=== PATIENT | male | born 1995 | race Caucasian/White ===

== ENCOUNTER 2019-05-05 16:37 | Emergency (ER) | payer BC ==
[2019-05-05] MEDS ORDERED: ONDANSETRON HCL/PF 4 MG/ 2ML VIAL IVP ONE (16:47)
--- NOTE | 2019-05-05 16:52 | ED Physician Documentation ---
General Adult - HISTORIAN Historian: patient - HPI Stated Complaint: Hypoglycemia Chief Complaint: General Adult Additional Information: Patient presents to ED with low blood sugar. Patient reports a blood sugar of 36 around 1445 today. He was shaky and diaphoretic at the time. He was able to get glucagon and eat. It improved to 47, he decided to come to ER. Upon presentation to ED his blood sugar was 63. Patient reports having some nausea and vomiting therefore not eating like he should today but keeping his normal insulin regimen. He take Levemir 30 units daily with sliding scale novolog with meals. [place] [employer] and several other campers have nausea/vomiting/diarrhea. He denies fever, chills, shortness of breath, chest pain or dizziness. Onset: hours (3) Timing: still present Severity: moderate - ROS CONST: sweating. denies: fever EYES/ENT: denies: problems with vision CVS/RESP: denies: chest pain, shortness of breath GI/: vomiting, nausea. denies: diarrhea MS/SKIN/LYMPH: none NEURO/PSYCH: denies: headache, dizziness - PAST HX Past History: none Other History: diabetes Type 1 Surgeries/Procedures: none Allergies/Adverse Reactions: Allergies Allergy/AdvReac Type Severity Reaction Status Date / Time No Known Allergies Allergy Verified 05/05/19 16:44 Home Medications: Ambulatory Orders Medication Instructions Recorded Insulin Aspart [Novolog Flexpen] 1 unit SQ TID 05/05/19 Insulin Detemir [Levemir Flextouch] 30 unit SQ HS 05/05/19 Ondansetron HCl Rapdis [Zofran Odt] 4 mg PO Q8 PRN #20 tab 05/05/19 - SOCIAL HX Smoking History: non-smoker Alcohol Use: none Drug Use: none - FAMILY HX Family History: Yes - VITAL SIGNS Vital Signs: Vital Signs Temp Pulse Resp BP Pulse Ox 95 H 13 134/77 91 L 05/05/19 16:37 05/05/19 16:37 05/05/19 16:37 05/05/19 16:37 - REVIEWED ASSESSMENTS Nursing Assessment Reviewed: Yes Progress - Results/Orders Results/Orders: UA- Negative for infection ED Results Lab/Radiology - Radiology Radiology Impressions: Report Submission Date: May 05, 2019 6:08:05 PM CDT Patient Study Name: BILLIE HERNANDEZ Date: May 05, 2019 5:26:50 PM CDT Modality Type: DX Gender: M Description: CHEST 2VIEW : 89 Institution: [facility] Physician: BIANCA ROSE Pa and lateral chest Clinical history hypoglycemia Technique pa and lateral upright Findings: The lung sauer are clear. I see no hilar or mediastinal mass. There is no pleural effusion or lesion of the bony thorax. Impression: No acute pulmonary disease Electronically signed on May 05, 2019 6:08:05 PM CDT by: Efrain Valles - Orders Orders: ED Orders Category Date Time Status Place IV Lock 1T Care 05/05/19 16:41 Ordered CBC/PLATELET/DIFF Routine Lab 05/05/19 Ordered CMP [CMP] Routine Lab 05/05/19 Ordered UA W/MICRO IF INDICATED Routine Lab 05/05/19 16:42 Ordered DEXTROSE 5%-NORMAL SALINE @ 125 MLS/HR(1000ml) Med 05/05/19 17:00 Ordered Dextrose 5 % and 0.9 % NaCl [D5ns] 1,000 ml IV Q8H Ondansetron HCl/Pf [Zofran] Med 05/05/19 16:47 Once 4 mg IVP NOW ONE General Adult Physical Exam - PHYSICAL EXAM GENERAL APPEARANCE: pale EENT: BERTA NECK: supple RESPIRATORY: no resp distress, chest non-tender, breath sounds normal CVS: reg rate & rhythm, heart sounds normal ABDOMEN: soft, normal bowel sounds, no distension, non-tender (no RLQ tenderness) BACK: normal inspection, no CVA tenderness SKIN: warm/dry, normal color EXTREMITIES: non-tender NEURO: oriented X3, motor nml, mood/affect nml Discharge Clincal Impression: Hypoglycemia Nausea & vomiting Qualifiers: Vomiting type: unspecified Vomiting Intractability: non-intractable Qualified Code(s): R11.2 - Nausea with vomiting, unspecified Prescriptions: Ondansetron HCl Rapdis [Zofran Odt] 4 mg PO Q8 PRN #20 tab PRN Reason: nausea/vomiting Referrals: Primary Doctor,No [Primary Care Provider] - 2 Days Additional Instructions: 1. Decrease Levemir dose until normal eating habits return 2. Zofran every 8 hours as needed for nausea/vomiting 3. Follow up with PCP within 4 days 4. Return to ER for new or worsening symptoms Condition: Stable Disposition: 01 HOME, SELF-CARE Decision to Admit: NO Date of Decison to Admit: 05/05/19 Decision Time: 17:59
[2019-05-05] MEDS ORDERED: DEXTROSE 5 % AND 0.9 % NACL 1,000 ML IV SCH (17:00)
[2019-05-05 17:03] LABS: eGFR (Non-African) > 60
[2019-05-05 17:07] LABS: BASOPHILS % 0.8 % (0.0-1.5); NEUTROPHILS # 14.6 # k/uL (1.4-7.7)
[2019-05-05] MEDS ORDERED: KETOROLAC TROMETHAMINE 30 MG/1ML VIAL IV ONE (18:11)
[2019-05-05] MEDS ORDERED: LORazepam 2 MG/ML VIAL IV ONE (18:11)
--- NOTE | 2019-05-05 18:11 | Diagnostic Imaging Report ---
BIANCA ROSE [facility] [id number] [facility] [address] [place], [place]. [address] Report Submission Date: May 05, 2019 6:08:05 PM CDT Patient Study Name: BILLIE HERNANDEZ Date: May 05, 2019 5:26:50 PM CDT Modality Type: DX Gender: M Description: CHEST 2VIEW : 89 Institution: [facility] Physician: BIANCA ROSE Pa and lateral chest Clinical history hypoglycemia Technique pa and lateral upright Findings: The lung sauer are clear. I see no hilar or mediastinal mass. There is no pleural effusion or lesion of the bony thorax. Impression: No acute pulmonary disease Electronically signed on May 05, 2019 6:08:05 PM CDT by: Efrain BAXTER
[2019-05-05 20:16] VITALS: BP 121/71
[2019-05-06 07:19] LABS: APPEARANCE,URINE CLEAR (CLEAR); COLOR,URINE AMBER (YELLOW); OCCULT BLOOD,URINE NEGATIVE (NEGATIVE)
== END 2019-05-05 19:15 | disposition home or self-care (01) ==
LOC: ED 16:37
DX: R11.2 Nausea with vomiting, unspecified (principal)
CPT/HCPCS: 71046; 80053; 81002; 85025; 96374; 96375; 99283; 99284; J1885; J2060; J2405; J7042; S1016